=== PATIENT | male | born 1950 | race African-American/Black ===

== ENCOUNTER 2024-08-31 20:11 | Emergency (ER) | payer MEDICARE ==
[~2024-08-31] VITALS: Ht 170.2 cm; Wt 84.1 kg
[2024-08-31 20:25] VITALS: TEMP 98.4
[2024-08-31] MEDS: CETIRIZINE HCL 10 MG TABLET PO ONE (22:29)
[2024-08-31 23:26] VITALS: BP 125/70; PULSE 70; RESP 18; O2SAT 99
== END 2024-09-01 05:16 | disposition home or self-care (01) ==
LOC: EMS 20:11
DX: R51.9 Headache, unspecified (principal)
CPT/HCPCS: 99283